=== PATIENT | female | born 2000 | race Caucasian/White ===

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

== ENCOUNTER 2019-04-27 11:12 | Outpatient (CLI) | payer OTHER ==
[~2019-04-27] VITALS: Ht 157.5 cm; Wt 73.9 kg
[~2019-04-27 11:12] MED LIST: IBUP-1541 PO; PNV-4 PO; PREN-21 PO; PREN1TAB71 PO; PREN1TAB91 PO
[2019-04-27] MEDS ORDERED: LACTATED RINGER'S 1,000 ML IV SCH (12:25)
[2019-04-27] MEDS ORDERED: AMPICILLIN 2 GM/NS (PMX) 100 ML IV ONE (12:30)
[2019-04-27] MEDS ORDERED: METHYLERGONOVINE 0.2 MG INJ IM PRN (12:30)
[2019-04-27] MEDS ORDERED: OXYTOCIN 30 UNITS/LR 500 ML IV PRN (12:30)
[2019-04-27] MEDS ORDERED: LIDOCAINE 1% (MPF) 30 ML INJ INJ PRN (12:30)
[2019-04-27] MEDS ORDERED: BUTORPHANOL 2 MG INJ IV PRN ×2 (12:30)
[2019-04-27] MEDS ORDERED: CARBOPROST 250 MCG INJ IM PRN (12:30)
[2019-04-27] MEDS ORDERED: OXYTOCIN 30 UNITS/LR 500 ML IV SCH ×2 (12:30)
[2019-04-27] MEDS ORDERED: MISOPROSTOL 200 MCG TAB PR PRN (12:30)
[2019-04-27 15:12] VITALS: Ht 157.5 cm; Wt 73.9 kg
[2019-04-27 15:13] VITALS: BP 106/61; PULSE 75; RESP 18
[2019-04-27] MEDS ORDERED: AMPICILLIN 1 GM/NS (PMX) 50 ML IV SCH (16:30)
== END 2019-04-27 17:35 | disposition home or self-care (01) ==
LOC: L-D 11:12 → OBT 11:12 → UNDOADMIN 12:20 → OBT 12:20 → L-D 12:20 → OBT 17:35 → L-D 18:26
PROVIDERS: ATTEND Obstetrics & Gynecology
DX: O62.9 Abnormality of forces of labor, unspecified (principal); Z3A.39 39 weeks gestation of pregnancy
CPT/HCPCS: 76815; 76818; 84112; 85025; 85610; 85730; 86592; 86850; 86900; 86901; 87340; J7120; Z7500; G0463; J0290

== ENCOUNTER 2019-04-29 01:25 | Outpatient (CLI) | payer OTHER ==
[~2019-04-29] VITALS: Ht 157.5 cm; Wt 73.9 kg
[2019-04-29 01:47] VITALS: Ht 157.5 cm; Wt 73.9 kg
[2019-04-29 01:48] VITALS: BP 104/61; PULSE 80; RESP 20
== END 2019-04-29 04:05 | disposition home or self-care (01) ==
LOC: L-D 01:25 → OBT 01:25
PROVIDERS: ATTEND Obstetrics & Gynecology
DX: O62.9 Abnormality of forces of labor, unspecified (principal); Z3A.39 39 weeks gestation of pregnancy
CPT/HCPCS: 76815; 76818; Z7500; G0463